=== PATIENT | female | born 1965 | race Hispanic/Latino ===

== ENCOUNTER → 2022-02-09 | Day surgery (SDC) | payer OTHER, SELFPAY ==
[~2022-02-09] MED LIST: CARAFATE1 GM PO; FENTANYL CITRATE/PF 100MCG/2 ML INJ ONE; INSULIN REGULAR, HUMAN 100 UNIT/1 ML ONE; KOMBIGLYZE XR1 EAC2; LEVEMIR 3M100 UNITS/; MIDAZOLAM HCL 2 MG/2 ML VIAL ONE; NOVOLOG MI100 UNIT/1 SC; OR PHACO EYE KIT ONE; PREOP PHACO EYE KIT ONE
[2022-02-09 15:10] VITALS: BP 154/83
== END | disposition home or self-care (01) ==
LOC: OR 11:33
PROVIDERS: ATTEND Ophthalmology
DX: H25.11 Age-related nuclear cataract, right eye (principal); E78.5 Hyperlipidemia, unspecified; E11.9 Type 2 diabetes mellitus without complications; Z79.4 Long term (current) use of insulin; Z86.16 Personal history of COVID-19
CPT/HCPCS: 36415; 66984; 82948; J2250; J3010; V2788; J1817

== ENCOUNTER 2024-08-31 20:06 | Emergency (ER) | payer OTHER ==
[~2024-08-31 20:06] MED LIST changes: -FENTANYL CITRATE/PF 100MCG/2 ML INJ ONE; -INSULIN REGULAR, HUMAN 100 UNIT/1 ML ONE; -MIDAZOLAM HCL 2 MG/2 ML VIAL ONE; -OR PHACO EYE KIT ONE; -PREOP PHACO EYE KIT ONE
== END 2024-08-31 21:10 | disposition short-term general hospital (02) ==
LOC: ER 20:10
DX: R51.9 Headache, unspecified (principal)